=== PATIENT | female | born 2000 | race African-American/Black ===

== ENCOUNTER 2024-11-13 15:03 | Emergency (ER) | payer BC ==
[2024-11-13] MEDS: Sodium Chloride 0.9% 1,000 ML IV ONE (18:43)
[2024-11-13] MEDS: diphenhydrAMINE 50 MG/ML SDV IVPUSH ONE (18:44)
[2024-11-13] MEDS: Ketorolac 30 MG/ML SDV IVPUSH ONE (18:44)
[2024-11-13] MEDS: Metoclopramide 10 MG/2 ML SDV IVPUSH ONE (18:44)
== END 2024-11-13 20:07 | disposition home or self-care (01) ==
LOC: JD.ED 15:03
DX: R51.9 Headache, unspecified (principal)
CPT/HCPCS: 70450; 81025; 96361; 96374; 96375; 99284; J1200; J1885; J2765; J7030

== ENCOUNTER 2025-04-21 12:14 | Emergency (ER) | payer BC, OTHER ==
[2025-04-21 12:47] LABS: BASOPHILS ABSOLUTE AUTO 0.0 K/mm3 (0.0-0.2); BASOPHILS PERCENT AUTO 0.4 % (0.0-1.0); EOSINOPHILS ABSOLUTE AUTO 0.3 K/mm3 (0.0-0.4); EOSINOPHILS PERCENT AUTO 2.7 % (0.0-6.0); IMMATURE GRAN ABSOLUTE AUTO 0.05 K/mm3 (0.00-0.05); IMMATURE GRAN PERCENT AUTO 0.5 % (0.0-0.4); LYMPHOCYTES ABSOLUTE AUTO 3.4 K/mm3 (1.0-4.8); LYMPHOCYTES PERCENT AUTO 33.7 % (24.0-44.0); MEAN PLATELET VOLUME 10.3 fl (9.4-12.3); MONOCYTES ABSOLUTE AUTO 0.8 K/mm3 (0.0-0.8); MONOCYTES PERCENT AUTO 7.5 % (0.0-8.0); NEUTROPHILS ABSOLUTE AUTO 5.5 K/mm3 (1.8-7.7); NEUTROPHILS PERCENT AUTO 55.2 % (41.0-71.0); NRBC ABSOLUTE 0.02 (0.00-0.02); NRBC PERCENT 0.2 % (0.0-0.2); PLATELET COUNT,PLT 351 K/mm3 (150-400); RED BLOOD CELL COUNT 5.04 M/mm3 (4.10-5.30); WHITE BLOOD CELL COUNT,WBC 9.96 K/mm3 (3.9-11.3)
[2025-04-21 13:16] LABS: APPEARANCE,URINE CLEAR (Clear); GLUCOSE,URINE NEGATIVE (Negative); OCCULT BLOOD,URINE NEGATIVE (Negative)
[2025-04-21 13:20] LABS: A/G RATIO 0.8 (1-2); ALANINE AMINOTRANSFERASE,ALT 14 U/L (14-59); ASPARTATE AMNIOTRANSFERASE,AST 14 U/L (15-37); BILIRUBIN TOTAL 0.3 mg/dL (0.2-1.0); BLOOD UREA NITROGEN,BUN 14 mg/dL (7-18); CARBON DIOXIDE,CO2 26 mEq/L (21-32); CHLORIDE,CL 104 mEq/L (98-107); CREATINE KINASE,CK 115 U/L (26-192); CREATININE 0.8 mg/dL (0.55-1.02); EST CRCL DRUG DOSING (CG) 89.70 mL/min; ESTIMATED GFR 105 mL/min (>60); GLUCOSE RANDOM 102 mg/dL (70-99); POTASSIUM,K 4.3 mEq/L (3.5-5.1); PROTEIN TOTAL,TP 7.9 g/dl (6.4-8.2); SODIUM,NA 139 mEq/L (136-145)
[2025-04-21 13:24] LABS: TSH 3.384 uIU/mL (0.358-3.74)
[2025-04-21 13:24] LABS: ETHANOL BLOOD MEDICAL 0.00 gm% (0.00); TROPONIN I HIGH SENSITIVITY < 4 pg/mL (<=51)
[2025-04-21 13:25] LABS: BUPRENORPHINE SCREEN,URINE NEGATIVE (CUTOFF=10); METHADONE SCREEN, URINE NEGATIVE (CUTOFF=200); METHAMPHETAMINES SCREEN, URINE NEGATIVE (CUTOFF=500); OXYCODONE SCREEN,URINE NEGATIVE (CUT0FF=100); THC SCREEN,URINE 20 NG/ML NEGATIVE (CUTOFF=50)
[2025-04-21 13:29] LABS: AMPHETAMINES SCREEN, URINE NEGATIVE (CUTOFF=500)
[2025-04-21 13:30] LABS: EPITHELIAL CELLS,URINE 0-5 /hpf (0-5)
== END 2025-04-21 14:13 | disposition home or self-care (01) ==
LOC: JD.ED 12:14
DX: R00.0 Tachycardia, unspecified (principal); Z79.899 Other long term (current) drug therapy; Z87.42 Personal history of other diseases of the female genital tract
CPT/HCPCS: 36415; 71045; 80053; 80306; 80307; 81001; 81025; 82550; 83690; 83735; 84443; 84484; 85025; 85379; 93005; 93246; 96360; 99285; J7030; 93010; 99284

== ENCOUNTER 2025-04-23 19:48 | Emergency (ER) | payer OTHER ==
[2025-04-23] MEDS ORDERED: Sodium Chloride 0.9% 10 ML Syringe FLUSH PRN (20:17)
[2025-04-23 20:42] LABS: BASOPHILS ABSOLUTE AUTO 0.0 K/mm3 (0.0-0.2); BASOPHILS PERCENT AUTO 0.4 % (0.0-1.0); EOSINOPHILS ABSOLUTE AUTO 0.3 K/mm3 (0.0-0.4); EOSINOPHILS PERCENT AUTO 2.9 % (0.0-6.0); IMMATURE GRAN ABSOLUTE AUTO 0.07 K/mm3 (0.00-0.05); IMMATURE GRAN PERCENT AUTO 0.7 % (0.0-0.4); LYMPHOCYTES ABSOLUTE AUTO 3.2 K/mm3 (1.0-4.8); LYMPHOCYTES PERCENT AUTO 31.2 % (24.0-44.0); MEAN PLATELET VOLUME 10.1 fl (9.4-12.3); MONOCYTES ABSOLUTE AUTO 0.8 K/mm3 (0.0-0.8); MONOCYTES PERCENT AUTO 7.5 % (0.0-8.0); NEUTROPHILS ABSOLUTE AUTO 5.8 K/mm3 (1.8-7.7); NEUTROPHILS PERCENT AUTO 57.3 % (41.0-71.0); NRBC ABSOLUTE 0.00 (0.00-0.02); NRBC PERCENT 0.0 % (0.0-0.2); PLATELET COUNT,PLT 309 K/mm3 (150-400); RED BLOOD CELL COUNT 4.97 M/mm3 (4.10-5.30); WHITE BLOOD CELL COUNT,WBC 10.14 K/mm3 (3.9-11.3)
[2025-04-23 21:13] LABS: A/G RATIO 0.8 (1-2); ALANINE AMINOTRANSFERASE,ALT 13 U/L (14-59); ASPARTATE AMNIOTRANSFERASE,AST 12 U/L (15-37); BILIRUBIN TOTAL 0.4 mg/dL (0.2-1.0); BLOOD UREA NITROGEN,BUN 12 mg/dL (7-18); CARBON DIOXIDE,CO2 28 mEq/L (21-32); CHLORIDE,CL 102 mEq/L (98-107); CREATININE 0.8 mg/dL (0.55-1.02); EST CRCL DRUG DOSING (CG) 89.70 mL/min; ESTIMATED GFR 105 mL/min (>60); GLUCOSE RANDOM 109 mg/dL (70-99); POTASSIUM,K 4.3 mEq/L (3.5-5.1); PROTEIN TOTAL,TP 7.6 g/dl (6.4-8.2); SODIUM,NA 136 mEq/L (136-145); TSH 5.111 uIU/mL (0.358-3.74)
[2025-04-23 21:14] LABS: TROPONIN I HIGH SENSITIVITY < 4 pg/mL (<=51)
[2025-04-23 21:31] LABS: T4 FREE 1.22 ng/dL (0.76-1.46)
[2025-04-23 21:41] LABS: APPEARANCE,URINE CLEAR (Clear); GLUCOSE,URINE NEGATIVE (Negative); OCCULT BLOOD,URINE NEGATIVE (Negative)
[2025-04-23 21:51] LABS: BUPRENORPHINE SCREEN,URINE NEGATIVE (CUTOFF=10); METHADONE SCREEN, URINE NEGATIVE (CUTOFF=200); METHAMPHETAMINES SCREEN, URINE NEGATIVE (CUTOFF=500); OXYCODONE SCREEN,URINE NEGATIVE (CUT0FF=100); THC SCREEN,URINE 20 NG/ML NEGATIVE (CUTOFF=50)
[2025-04-23 22:05] LABS: AMPHETAMINES SCREEN, URINE NEGATIVE (CUTOFF=500)
== END 2025-04-23 23:41 | disposition home or self-care (01) ==
LOC: JD.ED 19:48
DX: R00.2 Palpitations (principal); E66.9 Obesity, unspecified; Z79.890 Hormone replacement therapy; Z79.84 Long term (current) use of oral hypoglycemic drugs; Z79.899 Other long term (current) drug therapy; Z68.43 Body mass index [BMI] 50.0-59.9, adult
CPT/HCPCS: 36415; 71045; 80053; 80306; 81003; 83735; 84439; 84443; 84484; 84703; 85025; 85379; 87040; 93005; 99285; J7030; 93010; 99284

== ENCOUNTER 2025-08-27 13:02 | Emergency (ER) | payer OTHER, BC | END 2025-08-27 14:34 | disposition home or self-care (01) | LOC: JD.ED 13:02 | DX: S80.11XA Contusion of right lower leg, initial encounter (principal); E66.9 Obesity, unspecified; Z68.43 Body mass index [BMI] 50.0-59.9, adult; Z79.899 Other long term (current) drug therapy; V43.32XA Unspecified car occupant injured in collision with other type car in nontraffic accident, initial encounter | CPT/HCPCS: 73562-26-RT; 73562-RT; 73590-26-RT; 73590-RT; 99284 ==